=== PATIENT | female | born 1950 | race Caucasian/White ===

== ENCOUNTER → 2016-11-13 | Outpatient (CLI) | payer MEDICARE ==
[~2016-11-13] MED LIST: AGM500T PO; CPR500T PO; METR500T PO; ONDA4TABED PO; ONDN4T PO
[2016-11-13 16:15] VITALS: BP 144/78
--- NOTE | 2016-11-13 16:15 | Urgent Care T Sheet Gen (E) ---
Intake General Temperature (Fahrenheit): 98.2 Pulse: 70 Blood Pressure Systolic: 144 Blood Pressure Diastolic: 78 Respirations: 18 SPO2: 100 Description of Symptoms Patient presents with illness x 9 days, which is getting worse with time. Notes sinus congestion, ear fullness and malaise. No cough. Been taking DayQuil and Zyrtec. History of Present Illness Allergies: Coded Allergies: Hydrocodone (Verified Allergy, upset stomach, 06/12/13) Home Meds Active Scripts Amoxicillin/Clavulanate Potassium (Augmentin 500mg/125mg)1 Each Tablet1 Each PO BID Infection #20 TAB Ref 0 Prov:GOPI CAO 11/13/16 Ondansetron HCl (ED- Zofran ODT 4mg #4)4 Tab/Btl Tab.rapdis4 Tab PO Q4H #4 Prov:DEMI FORD MD 06/13/13 Ondansetron HCl (Zofran)4 Mg Tablet4 Mg PO Q4H #10 Prov:DEMI FORD MD 06/13/13 Metronidazole (Flagyl)500 Mg [id number] Mg PO TID 10 Days Prov:DEMI FORD MD 06/12/13 Ciprofloxacin HCl (Cipro)500 Mg Tablet1 Tab PO BID 10 Days Prov:DEMI FORD MD 06/12/13 Respiratory Constitutional Symptoms: No Fever, Malaise EENTM: Ear pain Nose Congestion Respiratory: No symptoms reported Cardiovascular: No symptoms reported Gastrointestinal/Abdominal: No symptoms reported All Other Systems Reviewed Remaining Systems: All other systems reviewed with negative findings Past Cppsovs-Dlofjz-Xcxgmp Hx Surgeries/Hospitalizations Hospitalization/Surgery Hx: dental implants, ramila, right knee replacement Respiratory Respiratory History: None Cardiovascular Cardiovascular History: None Reproductive System Sexually Transmitted Diseases: No Gastrointestinal GI/Endocrine History: None Diabetes Diabetes: No HEENT Impaired Vision: None Hearing Impaired: None Psychosocial Behavior Disorders: None Physical Exam Physical Exam General Appearance: WD/WN No apparent distress Eyes, Ears, Nose, Throat Ex: TMs normal (air fluid bubbles) Pharyngeal erythema (cobblestone appearance; thick PND) Other (red, swollen nasal turbinates with purulent drainage.) Neck Exam: SuppleNo Lymphadenopathy Respiratory Exam: Lungs clear Normal breath sounds Cardiovascular Exam: Regular rate, rhythm Departure Urgent Care Impression Impression: Primary Impression: Sinusitis Qualified Code: J01.00 - Acute maxillary sinusitis, unspecified Additional Impression: Elevated blood pressure reading Departure Disposition: 01 HOME OR SELF-CARE Condition: Stable Referrals: SHIRA ROSENBAUM MD (PCP) Additional Instructions: I have started the patient on Augmentin for treatment. I have also suggested she use Flonase for nasal swelling. DC OTC cold meds as it is increasing her BP Return as needed Patient understands DC instructions. All questions were answered. Scripts Amoxicillin/Clavulanate Potassium (Augmentin 500mg/125mg)1 Each Tablet1 Each PO BID Infection #20 TAB Ref 0 Prov:GOPI CAO 11/13/16 End of report . GOPI CAO Nov 13, 2016 11:06
== END ==
LOC: MHUC 10:28
PROVIDERS: ATTEND Physician Assistant
DX: J01.00 Acute maxillary sinusitis, unspecified (principal); R03.0 Elevated blood-pressure reading, without diagnosis of hypertension
CPT/HCPCS: 99213